=== PATIENT | male | born 1995 | race Two or more races ===

== ENCOUNTER 2017-03-25 18:26 | Emergency (ER) | payer OTHER ==
[~2017-03-25] VITALS: Ht 175.3 cm; Wt 63.5 kg
--- NOTE | 2017-03-25 19:20 | NUR ---
Assumed care of pt at this time. Pt c/o severe vomiting since approx 0300 then developed mid abd pain. Pt denies any constipation or diarrhea. Pt resting in position of comfort for self. Awaiting further evaluation. Mother at bedside.
[2017-03-25] MEDS ORDERED: ONDANSETRON ODT 4 MG TAB.RAPDIS SL ONE (19:30)
--- NOTE | 2017-03-25 19:33 | NUR ---
pt seen by . Pt medicated for N/V, will monitor for effects of medication.
[2017-03-25] MEDS ORDERED: ONDANSETRON HCL 4 MG TABLET ONE (19:41)
--- NOTE | 2017-03-25 19:47 | NUR ---
pt conts to c/o nausea. MD notified. Awaiting further orders.
--- NOTE | 2017-03-25 20:18 | NUR ---
Pt stable for discharge per MD. Pt given ACI. Pt verbalized understanding of dc instructions. Pt ambulated out of er with steady gait.
--- NOTE | 2017-03-25 20:18 | NUR ---
pt tolerated po challenge
[2017-03-25 20:20] VITALS: BP 145/75; PULSE 70; RESP 18; O2SAT 100
== END 2017-03-25 20:21 | disposition home or self-care (01) ==
LOC: ER 18:33
DX: R11.2 Nausea with vomiting, unspecified (principal); R10.9 Unspecified abdominal pain
CPT/HCPCS: 99283; A4663; Q0162